=== PATIENT | female | born 1945 | race Caucasian/White ===

== ENCOUNTER 2020-01-05 10:03 | Outpatient (CLI) | payer OTHER ==
[~2020-01-05 10:03] MED LIST: KEFLEX250 MG PO; KEFLEX500 MG PO; PYRIDIUM100 M1 PO; ULTRACET PO
== END 2020-01-05 11:20 | disposition home or self-care (01) ==
LOC: SONOGRAMA 10:03
PROVIDERS: ATTEND Pathology Anatomic Pathology & Clinical Pathology
DX: D34 Benign neoplasm of thyroid gland (principal); E04.1 Nontoxic single thyroid nodule; E06.3 Autoimmune thyroiditis

== ENCOUNTER 2021-05-26 08:31 | Outpatient (CLI) | payer OTHER | END 2021-05-26 08:32 | disposition home or self-care (01) | LOC: SONOGRAMA 08:31 | PROVIDERS: ATTEND Pathology Anatomic Pathology & Clinical Pathology | DX: E04.2 Nontoxic multinodular goiter (principal) ==